=== PATIENT | male | born 1995 | race Two or more races ===

== ENCOUNTER 2019-09-11 18:38 | Emergency (ER) | payer SELFPAY ==
[~2019-09-11] VITALS: Ht 167.6 cm; Wt 127.3 kg
[2019-09-11] MEDS ORDERED: PredniSONE 20 MG TABLET PO ONE (19:15)
[2019-09-11] MEDS ORDERED: HYPROMELLOSE 0.5% 15 ML OPHTHALMIC SOLUTION OS ONE (19:15)
[2019-09-11] MEDS ORDERED: ValACYclovir HCL 500 MG TABLET PO ONE (19:15)
[2019-09-11 19:43] VITALS: BP 120/60
== END 2019-09-11 19:44 | disposition home or self-care (01) ==
LOC: EMS 18:38
DX: G51.0 Bell's palsy (principal)
CPT/HCPCS: 99284; J7512